=== PATIENT | female | born 1970 | race Caucasian/White ===

== ENCOUNTER 2017-07-31 14:40 | Emergency (ER) | payer MEDICAID ==
[~2017-07-31] VITALS: Ht 162.6 cm; Wt 80.7 kg
[2017-07-31 14:52] VITALS: BP 99/66
[2017-07-31] MEDS ORDERED: DIPHENHYDRAMINE 50 MG/ML, 1ML IVPush ONE (15:30)
[2017-07-31] MEDS ORDERED: SODIUM CHLORIDE 0.9%, 500ML IVBOLUS ONE (15:30)
[2017-07-31] MEDS ORDERED: PROCHLORPERAZINE 5 MG/ML, 2ML IVPush ONE (15:30)
[2017-07-31] MEDS ORDERED: KETOROLAC 30 MG/1 ML IVPush ONE (15:30)
[2017-07-31] MEDS ORDERED: PROCHLORPERAZINE 5 MG/ML, 2ML ONE (15:43)
[2017-07-31] MEDS ORDERED: DIPHENHYDRAMINE 50 MG/ML, 1ML ONE (15:43)
[2017-07-31] MEDS ORDERED: KETOROLAC 30 MG/1 ML ONE (15:43)
== END 2017-07-31 16:59 | disposition home or self-care (01) ==
LOC: ED 16:50
DX: R51 Headache (principal); G40.909 Epilepsy, unspecified, not intractable, without status epilepticus; E11.9 Type 2 diabetes mellitus without complications; E78.00 Pure hypercholesterolemia, unspecified; J44.9 Chronic obstructive pulmonary disease, unspecified; G43.909 Migraine, unspecified, not intractable, without status migrainosus
CPT/HCPCS: 96361; 96374; 96375; 99284; J0780; J1200; J1885; J7040

== ENCOUNTER 2017-08-02 19:20 | Emergency (ER) | payer MEDICAID ==
[~2017-08-02] VITALS: Ht 162.6 cm; Wt 82.5 kg
[2017-08-02] MEDS ORDERED: LORazepam 1MG TABLET PO ONE (20:30)
[2017-08-02] MEDS ORDERED: CARBAMAZEPINE 200 MG TABLET PO ONE (20:30)
[2017-08-02] MEDS ORDERED: LORazepam 1MG TABLET ONE (20:48)
[2017-08-02 20:53] VITALS: BP 121/64
== END 2017-08-02 21:22 | disposition home or self-care (01) ==
LOC: ED 21:05
DX: R56.01 Complex febrile convulsions (principal); E11.9 Type 2 diabetes mellitus without complications; J44.9 Chronic obstructive pulmonary disease, unspecified; E78.00 Pure hypercholesterolemia, unspecified; F31.9 Bipolar disorder, unspecified; Z91.19 Patient's noncompliance with other medical treatment and regimen
CPT/HCPCS: 99283

== ENCOUNTER 2017-08-12 15:10 | Emergency (ER) | payer MEDICAID ==
[~2017-08-12] VITALS: Ht 162.6 cm; Wt 83.3 kg
[2017-08-12] MEDS ORDERED: SODIUM CHLORIDE 0.9% 1,000ML IVBOLUS ONE (16:00)
[2017-08-12] MEDS ORDERED: DIPHENHYDRAMINE 50 MG/ML, 1ML IVPush ONE (16:00)
[2017-08-12] MEDS ORDERED: SUMATRIPTAN 6MG/0.5ML SQ ONE ×2 (16:00→16:51)
[2017-08-12] MEDS ORDERED: KETOROLAC 30 MG/1 ML IVPush ONE (16:00)
[2017-08-12] MEDS ORDERED: SODIUM CHLORIDE FLUSH 10ML SYR IVF ONE (16:00)
[2017-08-12] MEDS ORDERED: DEXAMETHASONE 4 MG TABLET PO ONE (16:00)
[2017-08-12] MEDS ORDERED: PROCHLORPERAZINE 5 MG/ML, 2ML IVPush ONE (16:00)
[2017-08-12] MEDS ORDERED: KETOROLAC 30 MG/1 ML ONE (16:51)
[2017-08-12] MEDS ORDERED: PROCHLORPERAZINE 5 MG/ML, 2ML ONE (16:51)
[2017-08-12] MEDS ORDERED: DEXAMETHASONE 4 MG TABLET ONE (16:51)
[2017-08-12] MEDS ORDERED: DIPHENHYDRAMINE 50 MG/ML, 1ML ONE (16:52)
[2017-08-12 17:09] VITALS: BP 106/55
== END 2017-08-12 18:04 | disposition home or self-care (01) ==
LOC: ED 16:33
DX: G43.011 Migraine without aura, intractable, with status migrainosus (principal); E78.00 Pure hypercholesterolemia, unspecified; J44.9 Chronic obstructive pulmonary disease, unspecified; G40.909 Epilepsy, unspecified, not intractable, without status epilepticus; E11.9 Type 2 diabetes mellitus without complications; Z90.49 Acquired absence of other specified parts of digestive tract
CPT/HCPCS: 96361; 96372; 96374; 96375; 99284; J0780; J1200; J1885; J3030; J7030

== ENCOUNTER 2017-08-29 13:43 | Emergency (ER) | payer MEDICAID ==
[~2017-08-29] VITALS: Ht 165.1 cm; Wt 81.9 kg
[2017-08-29] MEDS ORDERED: ONDANSETRON 2MG/ML, 2ML ONE (14:14)
[2017-08-29 14:15] VITALS: BP 103/56
[2017-08-29] MEDS ORDERED: ONDANSETRON 2MG/ML, 2ML IVPush ONE (14:30)
[2017-08-29] MEDS ORDERED: SODIUM CHLORIDE 0.9% 1,000ML IVBOLUS ONE (14:30)
[2017-08-29] MEDS ORDERED: SODIUM CHLORIDE FLUSH 10ML SYR IVF ONE (14:30)
[2017-08-29 14:32] LABS: MICROSCOPIC AUTO
[2017-08-29 14:32] LABS: BASOPHILS # (AUTO) 0.04 x10^3/uL (0-0.1); BASOPHILS % (AUTO) 1 % (0-1); EOSINOPHILS # (AUTO) 0.07 x10^3/uL (0-0.4); EOSINOPHILS % (AUTO) 1 % (1-7); LYMPHOCYTES # (AUTO) 2.19 x10^3/uL (1-3.4); LYMPHOCYTES % (AUTO) 36 % (22-44); MD NO; MEAN CORPUSCULAR HEMOGLOBIN 29.3 pg (27.0-34.8); MEAN CORPUSCULAR HGB CONC 33.1 g/dL (32.4-35.8); MEAN CORPUSCULAR VOLUME 88.4 fL (80-100); MEAN PLATELET VOLUME 10.5 fL (7.4-10.4); MONOCYTES # (AUTO) 0.47 x10^3/uL (0.2-0.8); MONOCYTES % (AUTO) 8 % (2-9); NEUTROPHILS # (AUTO) 3.38 x10^3/uL (1.8-6.8); NEUTROPHILS % (AUTO) 55 % (42-75); PLATELET COUNT 193 x10^3/uL (130-400); RED BLOOD COUNT 4.21 x10^6/uL (3.82-5.3); RED CELL DISTRIBUTION WIDTH 14.1 % (9.6-15.2)
[2017-08-29 14:34] LABS: CULTURE INDICATED? YES
[2017-08-29 14:40] LABS: ANION GAP 8 mmol/L (5-15); CALCIUM 8.3 mg/dL (8.5-10.1); CHLORIDE 111 mmol/L (98-107); CREATININE 0.89 mg/dL (0.55-1.02)
[2017-08-29 14:41] LABS: ALANINE AMINOTRANSFERASE 23 U/L (12-78); ALBUMIN 3.2 g/dL (3.4-5.0)
[2017-08-29 14:45] LABS: ALKALINE PHOSPHATASE 81 U/L (45-117); BILIRUBIN,TOTAL 0.3 mg/dL (0.2-1.0); TOTAL PROTEIN 6.6 g/dL (6.4-8.2)
== END 2017-08-29 15:19 | disposition home or self-care (01) ==
LOC: ED 15:15
DX: R10.13 Epigastric pain (principal); E11.9 Type 2 diabetes mellitus without complications; E78.00 Pure hypercholesterolemia, unspecified; F31.9 Bipolar disorder, unspecified; G40.909 Epilepsy, unspecified, not intractable, without status epilepticus; G43.909 Migraine, unspecified, not intractable, without status migrainosus; J44.9 Chronic obstructive pulmonary disease, unspecified
CPT/HCPCS: 36415; 80053; 81001; 83690; 84703; 85025; 87086; 96361; 96374; 99285; J2405; J7030

== ENCOUNTER 2017-09-05 13:25 | Emergency (ER) | payer MEDICAID ==
[~2017-09-05] VITALS: Ht 162.6 cm; Wt 80.3 kg
[2017-09-05 13:28] VITALS: BP 95/62
== END 2017-09-05 14:42 | disposition home or self-care (01) ==
LOC: ED 14:39
DX: M25.561 Pain in right knee (principal); E11.9 Type 2 diabetes mellitus without complications; G43.909 Migraine, unspecified, not intractable, without status migrainosus; E78.00 Pure hypercholesterolemia, unspecified; J44.9 Chronic obstructive pulmonary disease, unspecified; F17.200 Nicotine dependence, unspecified, uncomplicated; Z90.49 Acquired absence of other specified parts of digestive tract
CPT/HCPCS: 99284

== ENCOUNTER 2018-07-31 21:03 | Emergency (ER) | payer MEDICAID ==
[~2018-07-31] VITALS: Ht 162.6 cm; Wt 96.6 kg
--- NOTE | 2018-07-31 21:58 | NUR ---
REPORT TO TIMOTHY MORRISSEY WHO ASSUMED CARE OF PT.
[2018-07-31 22:34] VITALS: BP 106/62
--- NOTE | 2018-07-31 22:37 | NUR ---
REPORT RECEIVED FROM TIMOTHY GRAHAM. PT IS UNSURE WHETHER SHE HAD SEIZURE TONIGHT, STATES SHE TAKES TEGRETOL AND IS COMPLIANT WITH MEDICATION. RYLEE CR AWARE. PT INSTRUCTED TO FOLLOW UP WITH NEUROLOGIST AND PRIMARY CARE PROVIDER, PT VERBALIZES UNDERSTANDING. PT A&O, RESPS EVEN AND UNALBORED, NEURO INTACT. SPEECH CLEAR, PT SPEAKING IN FULL SENTENCES. NO N/V. NO ORAL TRAUMA NOTED. NO INJURY NOTED WITH EXCEPTION TO LEFT WRIST PAIN. PT GIVEN DC INSTRUCTIONS AND SCRIPT, EDUCATED REGARDING RX FOR NAPROSYN. PT INSTRUCTED NOT TO DRIVE, PT AMB TO DC DESK WITH STEADY GAIT ACCOMPANIED BY FRIEND. LINDSEY AT DC.
== END 2018-07-31 22:38 | disposition home or self-care (01) ==
LOC: ED 22:32
DX: M79.642 Pain in left hand (principal); M25.532 Pain in left wrist; G43.909 Migraine, unspecified, not intractable, without status migrainosus; J44.9 Chronic obstructive pulmonary disease, unspecified; E11.9 Type 2 diabetes mellitus without complications; E78.00 Pure hypercholesterolemia, unspecified; G40.909 Epilepsy, unspecified, not intractable, without status epilepticus
CPT/HCPCS: 99283

== ENCOUNTER 2019-08-03 10:38 | Emergency (ER) | payer MEDICAID ==
[~2019-08-03] VITALS: Ht 162.6 cm; Wt 103.1 kg
[~2019-08-03 10:38] MED LIST: METF500T PO
[2019-08-03 10:43] VITALS: BP 110/62
--- NOTE | 2019-08-03 10:53 | NUR ---
PT CAME IN CO OF LEFT HIP PAIN. SAYS SHE SLIPPED AND FELL GETTING OUT OF HER SHOWER
== END 2019-08-03 12:28 | disposition home or self-care (01) ==
LOC: ED 12:18
DX: S70.02XA Contusion of left hip, initial encounter (principal); E11.9 Type 2 diabetes mellitus without complications; J44.9 Chronic obstructive pulmonary disease, unspecified; G43.909 Migraine, unspecified, not intractable, without status migrainosus; G40.909 Epilepsy, unspecified, not intractable, without status epilepticus; E78.00 Pure hypercholesterolemia, unspecified; W01.0XXA Fall on same level from slipping, tripping and stumbling without subsequent striking against object, initial encounter; Y93.89 Activity, other specified; Y92.031 Bathroom in apartment as the place of occurrence of the external cause; Y99.8 Other external cause status
CPT/HCPCS: 99283

== ENCOUNTER 2019-08-12 20:27 | Emergency (ER) | payer MEDICAID ==
[~2019-08-12] VITALS: Ht 162.6 cm; Wt 101.6 kg
--- NOTE | 2019-08-12 20:45 | NUR ---
PT TO ROOM 25 PER PEDIS. PT IS AN WELL APPEARING 48YO FEMALE, IN NO ACUTE DISTRESS. PT C/O ABDOMINAL PAIN RATING PAIN 9/10. PT IS CENTERED FROM THE PUBIS SYMPHASIS TO THE LOWER EDGE OF HER UMBILICUS. PAIN DOES NOT RADIATE AT THIS TIME. PT DEVELOPED THIS PAIN UPON AWAKENING THIS MORNING. PT DENIES ANY DIARRHEA, IS PASSING FLATUS, HAD NORMAL BOWEL MOVEMENTS (WHICH IS DIARRHEA) FOR HER, NAUSEA WITH VOMIT X1, BELCHING AND LOW GRADE FEVER. PT ALSO C/O GENERALIZED ACHES AND PAIN, AND AN OCCASIONAL COUGH. PT IS PLACED INTO A SURGICAL MASK PER PROTOCOL DUE TO THE COVID 19. PT HAS A HISTORY OF ENDOMETRIOSIS, STILL HAS HER UTERUS AND OVARIES, BUT STATES PAIN IS NOT THE SAME. PT WAS INITIALLY GOING TO RIDE THIS OUT AT HOME, THINKING THIS TO BE THE FLU VIRUS, BUT AFTER CONSULTING WITH DR. REYNOLDS, SHE FELT SHE SHOULD COME TO THE ED SHE DID EXHIBIT A LOW GRADE FEVER OF 99.0 AT HOME. PT IS AFEBRILE UPON CHECK IN, PT HAS NOT TAKEN ANY MEDICATIONS TO REDUCE HER FEVER OR COMBAT THE PAIN. PT PLACED ON SELECT PIECES OF MONITOR (O2 SAT PROBE AND NIBP), PUT IN GOWN, GIVEN WARM BLANKETS AND CALL LIGHT WITH INSTRUCTIONS. SON REMAINS AT BEDSIDE.
[2019-08-12] MEDS ORDERED: CARB100O PO (21:17)
[2019-08-12] MEDS ORDERED: ONDANSETRON 2MG/ML, 2ML IVPush ONE (21:30)
[2019-08-12] MEDS ORDERED: ACETAMINOPHEN 500 MG TABLET PO ONE (21:30)
[2019-08-12] MEDS ORDERED: SODIUM CHLORIDE 0.9% 1,000ML IVBOLUS ONE (21:30)
--- NOTE | 2019-08-12 22:16 | NUR ---
IV STARTED IN RIGHT ANTECUBITAL AFTER TECH'S UNABLE TO START. LAB DRAWN, BARRIER APPLIED AND PIV SECURED. 1000ML NACL BOLUS STARTED. MD HAS SEEN PATIENT AND ORDERS WRITTEN. REGISTRATION AT BEDSIDE. PT UP TO BR, AMBULATES WITH STRONG STEADY GAIT, DENIES ANY DIZZINESS.
--- NOTE | 2019-08-12 22:36 | NUR ---
PT HAS RETURNED FROM US. PT RE-ATTACHED TO MONITOR. MD IN TO ASSESS PATIENT. SON REMAINS AT BEDSIDE.
[2019-08-12] MEDS ORDERED: ACETAMINOPHEN 500 MG TABLET ONE (22:50)
[2019-08-12] MEDS ORDERED: ONDANSETRON 2MG/ML, 2ML ONE (22:50)
--- NOTE | 2019-08-12 22:59 | NUR ---
PT GIVEN TYLENOL FOR PAIN, ZOFRAN FOR NAUSEA AND A 1 LITER BOLUS OF NACL. PT INSTRUCTED ON USE OF CALL LIGHT PATIENT HAS PUSHED THE LIGHT 10 TIMES IN 10 MINUTES. BEFORE RN LEFT ROOM, RN ENSURES PATIENT HAS RECEIVED SOMETHING TO ADDRESS HER PAIN, INQUIRED ABOUT NEED TO URINATE OR HAVE A BM, CALL LIGHT IN REACH, EDUCATED ON NPO STATUS BUT GIVEN MOUTH MOISTENING SWABS, WARM BLANKETS ON, PERSONAL ITEMS WITHIN REACH OR MOVED TO WHERE SHE NEEDS THEM AND ATTEMPT TO RETRIEVE FROM THE WAITING, BUT DUE TO THE EMERGENT PATIENT NEED IN TRAUMA 3, NO VISITORS ARE BEING ALLOWED AT THIS TIME, AND PATIENT INFORMED OF THIS. WILL CONTINUE TO MONITOR PATIENT.
[2019-08-12 23:03] LABS: MICROSCOPIC AUTO
[2019-08-12 23:10] LABS: CULTURE INDICATED? YES
--- NOTE | 2019-08-12 23:25 | NUR ---
LAB AT BEDSIDE TO TALK TO RN ABOUT LAB DRAW. LAB HAS NOT RECEIVED THE SAMPLES OBTAINED BY RN. RN GOES TO TUBE STATION ON THE [place] AND ALTHOUGH SELECTION WAS APPROVED PER SCREEN, TUBE WAS NEVER SENT, STILL IN THE APPROVED SELECTION STATE. HOSTEL PARENT TAKES BLOOD SAMPLES AND WALKS THEM TO THE LAB TO RUN THE TESTS. REMAINS AT BEDSIDE. CALL LIGHT IN REACH, 3 P'S ADDRESSED.
--- NOTE | 2019-08-12 23:57 | NUR ---
LAB AT BEDSIDE AGAIN TO DRAW. RN INFORMS LAB AGAIN THAT BLOOD WAS DRAWN AND SENT THROUGH THE TUBE STATION. RN GOES BACK IN TO DISCUSS WITH PATIENT THAT LAB IS MISSING. PT VERY ANGRY AND WANTS TO LEAVE AMA. RN INFORMS PATIENT THAT AN AMA FORM WILL NEED TO BE SIGNED. PT THEN STATES "YOU LOST MY BLOOD, YOU LOST MY VITALS" INITIALLY RN DEFENDED THE FACT THAT BLOOD WAS SENT IN THE LAB TUBE, AND AGAIN INFORMED PATIENT THAT VITALS WERE NOT LOST. PT SIGNS FORM AND SETTLEMENT WORKER TECH GOES IN TO TAKE IV OUT. LAB FOUND IN ROOM. RN APOLOGIZES FOR MISTAKE AND OFFERS TO SEND. PT REMAINS UPSET AND RIGHTLY SO. PATIENT GOING TO CONTINUE TO LEAVE AMA.
--- NOTE | 2019-08-13 00:01 | NUR ---
LABS FOUND LAYING IN ROOM, WERE LABELED CORRECTLY AND VERIFIED WITH PT, SENT AT THIS TIME, PT AGREES TO STAY AT THIS TIME. APOLOGIES TO PT AND PT FOUND THE LABS LAYING IN THE ROOM.
--- NOTE | 2019-08-13 00:03 | NUR ---
SVP GROUP DIRECTOR IN TO TALK TO PATIENT.
--- NOTE | 2019-08-13 00:05 | NUR ---
PT AMBULATED TO THE BR W/ A STEADY GAIT.
--- NOTE | 2019-08-13 00:10 | NUR ---
REPORT RECEIVED FROM CAMILLA AGUIRRE. THIS RN TO ASSUME CARE OF PT AT THIS TIME.
[2019-08-13 00:12] LABS: BASOPHILS # (AUTO) 0.02 x10^3/uL (0-0.1); BASOPHILS % (AUTO) 0 % (0-1); EOSINOPHILS % (AUTO) 1 % (1-7); LYMPHOCYTES % (AUTO) 30 % (22-44); MD NO; MEAN CORPUSCULAR HEMOGLOBIN 28.8 pg (27.0-34.8); MEAN CORPUSCULAR VOLUME 87.4 fL (80-100); MEAN PLATELET VOLUME 10.9 fL (7.4-10.4); MONOCYTES # (AUTO) 0.43 x10^3/uL (0.2-0.8); MONOCYTES % (AUTO) 6 % (2-9); NEUTROPHILS # (AUTO) 4.58 x10^3/uL (1.8-6.8); NEUTROPHILS % (AUTO) 62 % (42-75); PLATELET COUNT 230 x10^3/uL (130-400); RED BLOOD COUNT 5.14 x10^6/uL (3.82-5.3); RED CELL DISTRIBUTION WIDTH 13.3 % (9.6-15.2)
[2019-08-13 00:21] VITALS: BP 114/63
--- NOTE | 2019-08-13 00:22 | NUR ---
APOLOGIES AGAIN GIVEN, PT AND AND UNDERSTANDABLY UPSET.
[2019-08-13 00:24] LABS: ALBUMIN 3.7 g/dL (3.4-5.0); ANION GAP 4 mmol/L (5-15); CALCIUM 9.2 mg/dL (8.5-10.1); CHLORIDE 109 mmol/L (98-107)
[2019-08-13 00:27] LABS: ALANINE AMINOTRANSFERASE 28 U/L (12-78); ALKALINE PHOSPHATASE 102 U/L (45-117); BILIRUBIN,TOTAL 0.3 mg/dL (0.2-1.0); CREATININE 0.83 mg/dL (0.55-1.02); TOTAL PROTEIN 8.2 g/dL (6.4-8.2)
[2019-08-13] MEDS ORDERED: FOSFOMYCIN 3 GM PACKET ONE (00:44)
--- NOTE | 2019-08-13 00:59 | NUR ---
Patient given discharge instructions and they have confirmed that they understand the instructions. Patient ambulatory with steady gait.
[2019-08-13] MEDS ORDERED: FOSFOMYCIN 3 GM PACKET PO ONE (01:00)
== END 2019-08-13 01:00 | disposition home or self-care (01) ==
LOC: ED 21:41
DX: N30.00 Acute cystitis without hematuria (principal); R11.2 Nausea with vomiting, unspecified; J44.9 Chronic obstructive pulmonary disease, unspecified; E11.9 Type 2 diabetes mellitus without complications; E78.00 Pure hypercholesterolemia, unspecified; Z90.49 Acquired absence of other specified parts of digestive tract; Z90.710 Acquired absence of both cervix and uterus
CPT/HCPCS: 36415; 80053; 81001; 83690; 85025; 87086; 93005; 96361; 96374; 99285; J2405; J7030

== ENCOUNTER 2019-08-27 20:35 | Emergency (ER) | payer MEDICAID ==
[~2019-08-27] VITALS: Ht 162.6 cm; Wt 103.9 kg
[~2019-08-27 20:35] MED LIST changes: +CARB100O PO
--- NOTE | 2019-08-27 20:50 | NUR ---
EKG DONE IN TRIAGE
[2019-08-27] MEDS ORDERED: ASPIRIN 81 MG TABLET CHEW PO ONE (21:30)
[2019-08-27] MEDS ORDERED: ASPIRIN 81 MG TABLET CHEW ONE (21:46)
[2019-08-27 21:52] VITALS: BP 126/71
[2019-08-27 21:53] LABS: BASOPHILS # (AUTO) 0.04 x10^3/uL (0-0.1); BASOPHILS % (AUTO) 1 % (0-1); EOSINOPHILS # (AUTO) 0.21 x10^3/uL (0-0.4); EOSINOPHILS % (AUTO) 3 % (1-7); LYMPHOCYTES # (AUTO) 2.04 x10^3/uL (1-3.4); LYMPHOCYTES % (AUTO) 27 % (22-44); MD NO; MEAN CORPUSCULAR HEMOGLOBIN 29.1 pg (27.0-34.8); MEAN CORPUSCULAR HGB CONC 33.5 g/dL (32.4-35.8); MEAN CORPUSCULAR VOLUME 86.8 fL (80-100); MEAN PLATELET VOLUME 10.9 fL (7.4-10.4); MONOCYTES # (AUTO) 0.53 x10^3/uL (0.2-0.8); MONOCYTES % (AUTO) 7 % (2-9); NEUTROPHILS # (AUTO) 4.63 x10^3/uL (1.8-6.8); NEUTROPHILS % (AUTO) 62 % (42-75); PLATELET COUNT 202 x10^3/uL (130-400); RED BLOOD COUNT 4.53 x10^6/uL (3.82-5.3); RED CELL DISTRIBUTION WIDTH 13.7 % (9.6-15.2)
--- NOTE | 2019-08-27 22:00 | NUR ---
THIS IS A 48 YO FEMALE WHO PRESENTS TO THE ER C/O STERNAL INTERMITTENT CP X 2 DAYS, WORSE WITH TALKING AND SORE THROAT X 2 DAYS. PT CURRENTLY DENIES CP. NSR 80'S ON ALLERGY NURSE. NO SWOLLEN TONSILS NOTED. PT AO X 4. SKIN PWD. RESP EVEN AND UNLABORED. PT ABLE TO SPEAK IN FULL 7-10 WORD SENTENCES W/O DIFFICULTY. PT ON CONT BP, CARDIAC AND O2 MONITORS. PT AWARE WE ARE WAITING FOR LAB RESULTS. SABI KO AT BEDSIDE. REPORT TO TIMOTHY BRADSHAW.
[2019-08-27 22:02] LABS: ANION GAP 6 mmol/L (5-15); CALCIUM 8.8 mg/dL (8.5-10.1); CHLORIDE 110 mmol/L (98-107); CREATININE 1.08 mg/dL (0.55-1.02)
[2019-08-27 22:03] LABS: ALANINE AMINOTRANSFERASE 24 U/L (12-78); ALBUMIN 3.3 g/dL (3.4-5.0)
[2019-08-27 22:07] LABS: ALKALINE PHOSPHATASE 95 U/L (45-117); TOTAL PROTEIN 7.3 g/dL (6.4-8.2); TROPONIN I < 0.015 ng/mL (0.000-0.045)
[2019-08-27 22:10] LABS: BILIRUBIN,TOTAL < 0.1 mg/dL (0.2-1.0)
== END 2019-08-27 22:53 | disposition home or self-care (01) ==
LOC: ED 21:41
DX: R07.89 Other chest pain (principal); Z20.828 Contact with and (suspected) exposure to other viral communicable diseases; R05 Cough; J44.9 Chronic obstructive pulmonary disease, unspecified; E11.9 Type 2 diabetes mellitus without complications; G40.909 Epilepsy, unspecified, not intractable, without status epilepticus; E78.00 Pure hypercholesterolemia, unspecified; F17.210 Nicotine dependence, cigarettes, uncomplicated; Z90.710 Acquired absence of both cervix and uterus; Z98.51 Tubal ligation status; Z90.89 Acquired absence of other organs; Z90.49 Acquired absence of other specified parts of digestive tract
CPT/HCPCS: 36415; 71045; 80053; 83880; 84484; 85025; 93005; 99285

== ENCOUNTER 2020-07-23 09:54 | Emergency (ER) | payer MEDICAID ==
[~2020-07-23] VITALS: Ht 162.6 cm; Wt 118.9 kg
--- NOTE | 2020-07-23 10:51 | NUR ---
PT AMBULATED TO THE BR W/ A STEADY GAIT. RETURNED TO ROOM W/O INCIDENT. THERESAS, LINDSEY.
[2020-07-23 11:08] VITALS: BP 108/58
--- NOTE | 2020-07-23 11:09 | NUR ---
ALL TESTS RESULTED. PT IS UP FOR RECHECK AT THIS TIME.
--- NOTE | 2020-07-23 11:40 | NUR ---
Patient given discharge instructions and they have confirmed that they understand the instructions. Patient ambulatory with steady gait.
== END 2020-07-23 11:41 | disposition home or self-care (01) ==
LOC: ED 11:28
DX: J06.9 Acute upper respiratory infection, unspecified (principal); Z20.822 Contact with and (suspected) exposure to COVID-19; B34.9 Viral infection, unspecified; R05 Cough; G43.909 Migraine, unspecified, not intractable, without status migrainosus; E11.9 Type 2 diabetes mellitus without complications; E78.00 Pure hypercholesterolemia, unspecified
CPT/HCPCS: 71045; 87635; 99284

== ENCOUNTER 2020-12-02 22:00 | Emergency (ER) | payer MEDICAID ==
[~2020-12-02] VITALS: Ht 162.6 cm; Wt 120.0 kg
--- NOTE | 2020-12-02 23:10 | NUR ---
GREENHOUSE INSTRUCTOR: PT TO ROOM FROM LOBBY
[2020-12-02 23:57] VITALS: BP 130/57
--- NOTE | 2020-12-03 00:01 | NUR ---
PT IN [facility]. PT PROVIDED ICE PACK. FSBS DONE WITH HOSPITAL GLUCOMETER. PT HAS CALL LIGHT WITHIN REACH AND VERBALIZES UNDERSTANDING OF ER PROCESS AND POC. AWAITING US AT THIS TIME.
--- NOTE | 2020-12-03 01:08 | NUR ---
report of pt to marc mcnamara. all questions anwered.
--- NOTE | 2020-12-03 01:40 | NUR ---
PT REFUSED TO STAY FOR RESULTS, "I HAVE TO WORK TOMMOROW". PT SIGNED AMA PAPER WORK
== END 2020-12-03 01:42 | disposition left against medical advice (07) ==
LOC: ED 23:12
DX: R60.0 Localized edema (principal); M79.605 Pain in left leg; J44.9 Chronic obstructive pulmonary disease, unspecified; E11.9 Type 2 diabetes mellitus without complications; G43.909 Migraine, unspecified, not intractable, without status migrainosus; G40.909 Epilepsy, unspecified, not intractable, without status epilepticus; E78.00 Pure hypercholesterolemia, unspecified; Z90.49 Acquired absence of other specified parts of digestive tract; Z90.89 Acquired absence of other organs; Z98.51 Tubal ligation status; Z87.891 Personal history of nicotine dependence; Z90.710 Acquired absence of both cervix and uterus
CPT/HCPCS: 82962; 99284

== ENCOUNTER 2020-12-11 21:00 | Emergency (ER) | payer MEDICAID ==
[~2020-12-11] VITALS: Ht 165.1 cm; Wt 118.0 kg
--- NOTE | 2020-12-11 21:07 | NUR ---
NOT IN LOBBY WHEN CALLED
[2020-12-11 21:15] VITALS: BP 101/58
--- NOTE | 2020-12-11 22:45 | NUR ---
patient signed AMA
== END 2020-12-11 22:47 | disposition left against medical advice (07) ==
LOC: ED 21:30
DX: M25.572 Pain in left ankle and joints of left foot (principal)
CPT/HCPCS: 99283